=== PATIENT | female | born 1970 | race Two or more races ===

== ENCOUNTER 2017-10-17 08:32 | Emergency (ER) | payer OTHER ==
[2017-10-17 08:48] VITALS: BMI 27.4
--- NOTE | 2017-10-17 09:39 | PDOC ---
Attending Attestation - HPI HPI: 10/17/17 10:58 The patient is a 47 year old female with no significant PMH of who presents to the emergency department with dysuria and frequency that began approximately 5 days ago and one day of intermittent room spinning dizziness. The patient states she returned from the [facility] on 10/14/17 and was feeling well besides her urinary complaints. The patient describes the dizziness as room spinning that is worsened by changes in position. The patient denies numbness, tingling, ear pain or drainage, or focal weakness. The patient notes she has been experiencing stress as she is concerned she is . She requests a test. She states her LMP was on 09/28/17 and had her NuvaRing taken out on 10/15/17. The patient denies abdominal pain, chest pain, shortness of breath,and dizziness. Denies fever, chills, nausea, vomit, diarrhea and constipation. Denies urgency, hematuria, or vaginal discharge. Allergies: NKA Past surgical history: None reported. Social history: Occasional smoker. Social drinking. Denies drug use. - Physicial Exam PE: 10/17/17 10:58 GENERAL: Awake, alert, and fully oriented, in no acute distress HEAD: No signs of trauma EYES: PERRLA, EOMI, sclera anicteric, conjunctiva clear ENT: Auricles normal inspection, hearing grossly normal, nares patent, oropharynx clear without exudates. Moist mucosa NECK: Normal ROM, supple, no lymphadenopathy, JVD, or masses LUNGS: Breath sounds equal, clear to auscultation bilaterally. No wheezes, and no crackles HEART: Regular rate and rhythm, normal S1 and S2, no murmurs, rubs or gallops ABDOMEN: Soft, nontender, normoactive bowel sounds. No guarding, no rebound. No masses EXTREMITIES: Normal range of motion, no edema. No clubbing or cyanosis. No cords, erythema, or tenderness NEUROLOGICAL: Normal speech, cranial nerves intact, negative pronator drift, 5/ 5 strength in all 4 extremities, normal sensation to light touch in all 4 extremities, normal cerebellar exam, normal gait, normal reflexes and tone SKIN: Warm, Dry, normal turgor, no rashes or lesions noted. <Marcia Matias - Last Filed: 10/17/17 10:58> - Resident Resident Name: Swati Candelaria - ED Attending Attestation I have performed the following: I have examined & evaluated the patient, The case was reviewed & discussed with the resident, I agree w/resident's findings & plan, Exceptions are as noted - Medical Decision Making 10/17/17 10:42 47-year-old female presents to emergency department with urinary complaints as well as intermittent positional room spinning dizziness. Vitals are unremarkable. Exam is unremarkable. We'll obtain urinalysis to evaluate for UTI and give meclizine and fluids and reassess 10/17/17 13:06 Patient reports complete resolution of symptoms with fluids and meclizine. She requests discharge home I discussed the physical exam findings, ancillary test results and final diagnoses with the patient. I answered all of the patient's questions. The patient was satisfied with the care received and felt comfortable with the discharge plan and treatment plan. The patient will call their primary care physician within 24 hours to arrange follow-up and will return to the Emergency Department with any new, persistent or worsening symptoms. <Adal Jacques - Last Filed: 10/19/17 02:09>
--- NOTE | 2017-10-17 09:53 | PDOC ---
History of Present Illness - General Chief Complaint: Lightheaded Stated Complaint: DIZZINESS Time Seen by Provider: 10/17/17 09:08 History Source: Patient Exam Limitations: No Limitations - History of Present Illness Initial Comments: This is a 47 YOF with unremarkable PMH who presents with 5 days of burning dysuria and urinary frequency, as well as one day of positional vertigo. She returned from a trip to the on 10/14/17 but other than the urinary symptoms had been feeling well during that trip. Her LMP ended on 09/28/17, she took out her NuvaRing on 10/15/17, and has not yet had a menstrual period since that time (believes she is overdue). She expresses concern that she may be and states her stress level has been high since then. She had a slight right-sided headache yesterday which resolved spontaneously. She denies any chest pain, SOB , abdominal pain, vision change, numbness, tingling, focal weakness, difficulty walking, vaginal discharge, or other symptoms. Past History - Past Medical History Allergies/Adverse Reactions: Allergies Allergy/AdvReac Type Severity Reaction Status Date / Time No Known Allergies Allergy Verified 07/23/16 13:08 Home Medications: Ambulatory Orders Sulfamethoxazole/Trimethoprim [Bactrim Ds -] 1 tab PO BID #10 tablet 10/17/17 COPD: No - Suicide/Smoking/Psychosocial Hx Smoking History: Current some day smoker Have you smoked in the past 12 months: Yes Number of Cigarettes Smoked Daily: 2 Information on smoking cessation initiated: No Hx Alcohol Use: No Drug/Substance Use Hx: No Substance Use Type: None Review of Systems - Review of Systems Able to Perform ROS?: Yes Constitutional: No: Chills, Fever, Unexplained wgt Loss HEENTM: No: Nose Congestion, Throat Pain Respiratory: No: Cough, Shortness of Breath Cardiac (ROS): No: Chest Pain, Edema, Palpitations ABD/GI: No: Constipated, Diarrhea, Nausea, Vomiting : Yes: Burning, Dysuria, Frequency Musculoskeletal: No: Back Pain, Neck Pain Integumentary: No: Bruising, Rash Neurological: Yes: Headache (slight, resolved), Dizziness. No: Numbness, Tingling, Weakness, Unsteady Gait Endocrine: No: Unexplained Weight Gain, Unexplained Weight Loss *Physical Exam - Vital Signs Last Vital Signs Temp Pulse Resp BP Pulse Ox 98.7 F 88 20 119/72 99 10/17/17 08:46 10/17/17 08:46 10/17/17 08:46 10/17/17 08:46 10/17/17 08:46 - Physical Exam General Appearance: Yes: Nourished, Appropriately Dressed, Other (nontoxic, well appearing adult female in no distress, answering questions appropriately, not obviously dizzy-appearing). No: Apparent Distress HEENT: positive: EOMI, Normal ENT Inspection, Normal Voice, Hearing Grossly Normal. negative: Scleral Icterus (R), Scleral Icterus (L), Pharyngeal Erythema , Nasal Congestion, Rhinorrhea, Sinus Tenderness, Hearing Decreased, TM Bulging , TM Dull, TM Erythema Neck: positive: Trachea midline, Supple. negative: Tender, Rigid Respiratory/Chest: positive: Lungs Clear, Normal Breath Sounds. negative: Respiratory Distress, Crackles, Rhonchi, Stridor, Wheezing Cardiovascular: positive: Regular Rhythm, Regular Rate, S1, S2. negative: Murmur Gastrointestinal/Abdominal: positive: Normal Bowel Sounds, Flat, Soft. negative : Tender, Organomegaly, Pulsatile Mass, Guarding Musculoskeletal: positive: Normal Inspection. negative: Decreased Range of Motion, Vertebral Tenderness Extremity: positive: Normal Capillary Refill, Normal Inspection, Normal Range of Motion. negative: Tender, Cyanosis Integumentary: positive: Normal Color, Dry, Warm. negative: Erythema, Rash, Bruising Neurologic: positive: manager inventory control II-XII NML intact, Fully Oriented, Alert, Normal Mood/ Affect, Normal Response, Motor Strength 5/5, Other (horizontal nystagmus on extreme left lateral gaze which extinguishes after ~7 seconds). negative: Facial Droop, Numbness, Sensory Deficit, Finger to Nose, Confused, Disoriented Heart Score/ECG Review #1 NSR rate of 60 with nonspecific t-wave inversions. No prior studies. ED Treatment Course - LABORATORY CBC & Chemistry Diagram: 10/17/17 09:42 10/17/17 09:42 - ADDITIONAL ORDERS Additional order review: Laboratory Results 10/17/17 10/17/17 10/17/17 10:50 09:42 09:42 PT with INR 11.00 INR 0.97 Sodium 138 Potassium 4.3 Chloride 107 Carbon Dioxide 24 Anion Gap 7 L BUN 13 Creatinine 0.8 Creat Clearance w eGFR > 60 Random Glucose 94 Calcium 8.3 L Total Bilirubin 0.4 AST 15 ALT 25 Alkaline Phosphatase 55 Creatine Kinase 68 Troponin I < 0.02 Total Protein 7.0 Albumin 3.5 Urine Color Yellow Urine Appearance Cloudy Urine pH 5.0 Ur Specific Drew 1.020 Urine Protein 1+ H Urine Glucose (UA) Negative Urine Ketones Negative Urine Blood 1+ H Urine Nitrite Negative Urine Bilirubin Negative Urine Urobilinogen Negative Ur Leukocyte Esterase 3+ H Urine WBC (Auto) 469 Urine RBC (Auto) 21 Ur Epithelial Cells Rare Urine Mucus Rare Urine HCG, Qual Negative 10/17/17 09:42 RBC 5.02 MCV 86.8 MCHC 32.9 RDW 13.8 MPV 8.7 Neutrophils % 77.4 Lymphocytes % 17.2 Monocytes % 4.2 Eosinophils % 0.8 Basophils % 0.4 - RADIOLOGY Radiology Studies Ordered: Category Date Time Status CHEST X-RAY PORTABLE* [RAD] Stat Radiology 10/17/17 09:16 Taken - Medications Given in the ED: ED Medications Discontinued Medications Generic Name Dose Route Start Last Admin Trade Name Freq PRN Reason Stop Dose Admin Sodium Chloride 1,000 mls @ 1,000 mls/hr 10/17/17 10:09 10/17/17 10:35 Normal Saline - IV 10/17/17 11:08 1,000 mls/hr ASDIR STA Administration Meclizine HCl 25 mg 10/17/17 10:09 10/17/17 10:35 Antivert - PO 10/17/17 10:10 25 mg ONCE ONE Administration Medical Decision Making - Medical Decision Making 47 YOF who p/w dysuria x5d and intermittent positional vertigo x1 day. On exam VS wnl, NAD, walking normally, neuro exam normal except 7 seconds of horizontal nystagmus on left lateral gaze, Gardiner-Hallpike neg. Vertigo DDX IBNLT BPPV, unlikely ICH, mass, or other intracranial pathology given lack of additional neuro sxs, and positionality of sxs. Dysuria sxs IBNLT UTI, less likely pyelo given lack of CVA ttp, unlikely urethritis, endometritis, PID, or other etiology. Ordered is CBCD CMP Cardiac panel TS Coags UA Cx hCG EKG CXR. 10/17/17 11:54 UA notable for 3+ leukocyte esterase, otherwise labs unremarkable. Patient with normal CXR, EKG with nonspecific flipped T-waves, no prior studies available but enzymes negative. She feels better with IVF and meclizine. She is appropriate for DC home with E-Rx sent for abx. Return precautions discussed. *DC/Admit/Observation/Transfer Diagnosis at time of Disposition: Dizziness UTI (urinary tract infection) Qualifiers: Urinary tract infection type: acute cystitis Hematuria presence: with hematuria Qualified Code(s): N30.01 - Acute cystitis with hematuria - Discharge Dispostion Disposition: HOME Condition at time of disposition: Stable Admit: No - Prescriptions Prescriptions: Sulfamethoxazole/Trimethoprim [Bactrim Ds -] 1 tab PO BID #10 tablet - Referrals - Patient Instructions Printed Discharge Instructions: DI for Urinary Tract Infection (UTI) Additional Instructions: Bowie visto en la paras de emergencias por mareos y por barney infeccion de la orina. Todos hannah laboratorios de mauricio fueron normales, y tambien friend placa del pecho y friend electrocardiograma fueron normales. Le dimos el carmen y un medicamento que se llama meclizine. Por favor obtenga la receta para los antibioticos que estamos mandando a friend farmacia. Por favor tambien compre meclizine si lo necesita para los mareos (que puede comprar en la farmacia sin receta). Haz barney niles con friend doctor primario para 3-5 angel, o regrese a la paras de emergencias si tiene alguna sintoma nueva o que empeora. Print Language: NAURUAN - Post Discharge Activity
[2017-10-17] MEDS ORDERED: MECLIZINE HCL 25 MG TABLET (FP) PO ONE (10:09)
[2017-10-17] MEDS ORDERED: SODIUM CHLORIDE 1,000 ML IV STA (10:09)
[2017-10-17 10:21] LABS: BASO % 0.4 % (0-2.0); EOS % 0.8 % (0-4.5); HEMATOCRIT 43.6 % (32.4-45.2); HEMOGLOBIN 14.3 GM/dL (10.7-15.3); LYMPH % 17.2 % (8-40); MCH 28.5 pg (25.7-33.7); MCHC 32.9 g/dl (32.0-36.0); MEAN CELL VOLUME 86.8 fl (80-96); MEAN PLT VOLUME 8.7 fl (7.5-11.1); MONO % 4.2 % (3.8-10.2); NEUT % 77.4 % (42.8-82.8); PLATELET COUNT 275 K/MM3 (134-434); RBC 5.02 M/mm3 (3.60-5.2); RDW 13.8 % (11.6-15.6); WHITE BLOOD COUNT 6.3 K/mm3 (4.0-10.0)
[2017-10-17] MEDS ORDERED: MECLIZINE HCL 25 MG TABLET (FP) ONE (10:27)
[2017-10-17 10:48] LABS: INR 0.97 (0.82-1.09)
[2017-10-17 11:13] LABS: HCG,QUALITATIVE URINE NEGATIVE; URINE APPEARANCE CLOUDY; URINE BILIRUBIN NEGATIVE (NEGATIVE); URINE BLOOD 1+ (NEGATIVE); URINE COLOR YELLOW; URINE GLUCOSE (UA) NEGATIVE (NEGATIVE); URINE KETONE NEGATIVE (NEGATIVE); URINE LEUK ESTERASE 3+ (NEGATIVE); URINE NITRITE NEGATIVE (NEGATIVE); URINE PROTEIN 1+ (NEGATIVE); URINE UROBILINOGEN NEGATIVE mg/dL (0.2-1.0)
[2017-10-17 11:27] LABS: ALBUMIN 3.5 g/dl (3.4-5.0); ANION GAP 7 (8-16); BILIRUBIN,TOTAL 0.4 mg/dL (0.2-1.0); BLOOD UREA NITROGEN 13 mg/dL (7-18); CALCIUM 8.3 mg/dL (8.5-10.1); CHLORIDE 107 mmol/L (98-107); CO2 24 mmol/L (21-32); CREATININE 0.8 mg/dL (0.55-1.02); GLUCOSE,RANDOM 94 mg/dL (74-106); POTASSIUM 4.3 mmol/L (3.5-5.1); SGOT/AST 15 U/L (15-37); SGPT/ALT 25 U/L (12-78); SODIUM 138 mmol/L (136-145)
[2017-10-17 11:31] LABS: ALK PHOS 55 U/L (45-117)
[2017-10-17 11:59] LABS: EPI CELLS RARE /HPF (FEW); URINE MUCUS RARE
[2017-10-17 12:32] VITALS: BP 122/84; PULSE 79; TEMP 98
--- NOTE | 2017-10-18 13:31 | EKG ---
Test Reason : Blood Pressure : / mmHG Vent. Rate : 060 BPM Atrial Rate : 060 BPM P-R Int : 144 ms QRS Dur : 076 ms QT Int : 402 ms P-R-T Axes : 045 010 027 degrees QTc Int : 402 ms NORMAL SINUS RHYTHM POOR R WAVE PROGRESSION ABNORMAL ECG NO PREVIOUS ECGS AVAILABLE NOTE ERROR IN LEAD POSITIONING, LEAD V4 Confirmed by LAURA DAY, ROSANNE ([id number]) on 10/18/2017 1:30:26 PM Referred By: Confirmed By:ROSANNE SANCHEZ MD
== END 2017-10-17 12:37 | disposition home or self-care (01) ==
LOC: JER 08:32
PROC: 3E0337Z Introduction of Electrolytic and Water Balance Substance into Peripheral Vein, Percutaneous Approach (ICD-10-PCS; principal; 2017-10-17)
DX: N30.01 Acute cystitis with hematuria (principal); R42 Dizziness and giddiness
CPT/HCPCS: 36415; 71045-TC; 80053; 81003; 81015; 82550; 84484; 84703; 85025; 85610; 87086; 87186; 93005; 93010; 96360; 99283-25